=== PATIENT | female | born 1995 | race Caucasian/White ===

== ENCOUNTER 2017-01-10 00:12 | Emergency (ER) | payer SELFPAY ==
[~2017-01-10] VITALS: Ht 175.3 cm; Wt 156.2 kg
[~2017-01-10 00:12] MED LIST: ACDPT PO; ARIP5TAB5 PO; CYCL10TA45 PO; DULO60CA7 PO; GBPN300C PO; SULF1TAB35 PO
--- OUTSIDE RECORDS SUMMARY | 2017-01-10 00:17 | XMS REPORT | Summary of Care ---
Author Author Dee Dee Aleaxndra Organization Unknown Address [address] [place], [place] [id number] Phone Unavailable Care Team Providers Care Paraoptometric Name Role Phone Dee Dee Alexandra Unavailable Unavailable Abraham Carrasco M.D. Unavailable Unavailable DaniloAbraham lobo Unavailable Unavailable Unavailable Unavailable Functional Status Name Dates Details Functional status health issues are not documented Status: Name Dates Details Cognitive status health issues are not documented Status: Problems Name Dates Details DUB (dysfunctional uterine bleeding) (626.8, N93.8) Status: Active Abdominal pain (789.00, R10.9) Status: Active Chronic diarrhea (787.91, K52.9) Status: Active Bleeding after intercourse (626.7, N93.0) Status: Active Muscle spasm (728.85, M62.838) Status: Active Fibromyalgia (729.1, M79.7) Status: Active Morbid obesity (278.01, E66.01) Status: Active Hydradenitis (705.83, L73.2) Status: Active Depression (311, F32.9) Status: Active Anxiety disorder (300.00, F41.9) Status: Active Amenorrhea (626.0, N91.2) Status: Active Weight gain (783.1, R63.5) Status: Active Encounter for fertility planning (V26.89, Z31.89) Status: Active Medications Name Dates Details SEROquel 50 MG Oral Tablet TAKE 1 TABLET AT BEDTIME. Refills: 0 Danilo M.D., Abraham Start 15-May-2016 Active DULoxetine HCl - 60 MG Oral Capsule Delayed Release Particles TAKE 1 CAPSULE Daily Refills: 0 [place] M.D., Abraham Start 25-May-2016 Active Baclofen 10 MG Oral Tablet TAKE 1 TABLET 3 times daily PRN muscle spasms Quantity: 90 Refills: 4 Danilo M.D., Abraham Start 29-May-2016 Active BusPIRone HCl - 10 MG Oral Tablet TAKE 1 TABLET DAILY. Quantity: 30 Refills: 0 Danilo M.D., Abraham Start 29-May-2016 Active TraZODone HCl - 50 MG Oral Tablet Refills: 0 Start 08-Jun-2016 Active Plus 27-1 MG Oral Tablet TAKE 1 TABLET DAILY. Quantity: 1 Refills: 2 Dee Dee Alexandra Start 08-Jun-2016 Active 100 Tablet Bottle Allergies and Adverse Reactions Name Dates Details Latuda TABS (Allergy) Status: Active Penicillins (Allergy) Status: Active Latex (Allergy) Status: Active Past Medical History Name Dates Details History of Chlamydia (079.98, A74.9) Status: Resolved History of Elbow fracture (812.40, S42.409A) Status: Resolved Procedures Procedure Dates Details THYROID STIM. HORMONE 3602 Ordered: 08-Jun-2016 HEMOGLOBIN A1C 3507 Ordered: 08-Jun-2016 Immunization Name Dates Details Influenza on: 2014 Family History Name Dates Details Family history of fibromyalgia (V17.89, Z82.69) Status: Active Name Dates Details Family history of Diabetes type 2, controlled (250.00, E11.9) Status: Active Family history of malignant neoplasm of kidney (V16.51, Z80.51) Status: Active Family history of hypertension (V17.49, Z82.49) Status: Active Social History Name Dates Details - Status: Name Dates Details Former smoker Vital Signs Date Test Result Details 08-Jun-2016 14:47 BP Systolic 114 mm[Hg] Status: Comments: Location: LUE; Position: Sitting BP Diastolic 80 mm[Hg] Status: Comments: Location: LUE; Position: Sitting Weight 370 lb Status: 29-May-2016 13:42 BP Systolic 124 mm[Hg] Status: Comments: Location: LUE; Position: Sitting BP Diastolic 72 mm[Hg] Status: Comments: Location: LUE; Position: Sitting Temperature 97.9 f Status: Comments: Method: Tympanic Heart Rate 86 /min Status: Comments: Location: ; Weight 370.4 lb Status: Physical Findings 98 Status: Comments: O2 Saturation 15-May-2016 11:07 BP Systolic 122 mm[Hg] Status: Comments: Location: ; Position: BP Diastolic 70 mm[Hg] Status: Comments: Location: ; Position: Temperature 97.7 f Status: Heart Rate 85 /min Status: Height 70.2 in Status: Weight 371.375 lb Status: Physical Findings 98 Status: Comments: O2 Saturation Body Mass Index Calculated 52.98 kg/m2 Status: Body Surface Area Calculated 2.72 m2 Status: Results Date Description Value Details 16-May-2016 14:31 Comprehensive Metabolic Panel 1212 Comments: Items were attached to this order: BHCGItems were attached to this order: FSHItems were attached to this order: PROL SODIUM 138 mmol/L Range: 133-144 POTASSIUM 4.4 mmol/L Range: 3.5-5.1 CHLORIDE 105 mmol/L Range: 98-110 CARBON DIOXIDE 25.7 mmol/L Range: 23.0-33.0 ANION GAP 7 mmol/L Range: 6-16 BUN 11 mg/dL Range: 7-18 CREATININE, SERUM 1.04 mg/dL (Above high threshold) Range: 0.55-1.02 Comments: Please note new reference ranges effective 2015.----- BUN:CREATININE RATIO 11 EST GFR, >60 ml/min Range: >60 EST GFR, NON-AFR ANDORRAN >60 ml/min Range: >60 Comments: EST GFR is reported in ml/min per 1.73 m2 of body surface area. For -[place], please multiple result by 1.2.----- GLUCOSE 91 mg/dL Range: 70-100 ALK PHOSPHATASE 72 U/L Range: 46-116 TOTAL BILIRUBIN 0.50 mg/dL Range: 0.20-1.00 AST 36 U/L (Above high threshold) Range: 8-35 ALT 62 U/L (Above high threshold) Range: 14-59 Comments: Please note new reference ranges. Effective 12/20/2014.----- ALBUMIN 3.4 g/dL Range: 3.4-5.0 TOTAL PROTEIN 7.1 g/dL Range: 6.4-8.2 A/G RATIO 0.9 units (Below low threshold) Range: 1.0-1.8 CALCIUM 8.7 mg/dL Range: 8.5-10.1 14:31 LIPID PROFILE 1184 Comments: Items were attached to this order: BHCGItems were attached to this order: FSHItems were attached to this order: PROL CHOLESTEROL 179 mg/dL Range: <200 TRIGLYCERIDES 183 mg/dL Range: 30-200 HDL Cholesterol 39 mg/dL (Below low threshold) Range: >39 NON HDL CHOLESTEROL 140 CARDIAC RSK FACTOR 4.6 units Range: 4.4-5.0 LDL - CALCULATED 103 mg/dL Range: 0-130 18-May-2016 08:36 THYROID STIM. HORMONE 3602 Comments: Items were attached to this order: BHCGItems were attached to this order: FSHItems were attached to this order: PROL THYROID STIM. HORMONE 2.404 uIU/mL Range: 0.550-4.780 Comments: No established reference ranges for infants and children <2 years of age----- 08:36 FOLLICLE STIM. HORMONE 3616 Comments: Items were attached to this order : BHCGItems were attached to this order: FSHItems were attached to this order: PROL FOLLICLE STIM. HORMONE 5.3 mIU/mL Comments: Female Ranges:Follicular: 2.5-10.2 mIU/mLOvulatory: 3.4-33.4 mIU/mLLuteal: 1.5-9.1 mIU/mLPostmenopausal : 23.0-116.3 mIU/mL----- 08:36 BETA HCG 3500 Comments: Items were attached to this order: BHCGItems were attached to this order: FSHItems were attached to this order: PROL BETA HCG <2 mIU/mL Range: 0-5 Comments: Gestational age: 0.02-1 Weeks=5-50 mIU/mL1-2 Weeks=50-500 mIU/mL2-3 Lihbg=153-8116 mIU/mL3-4 Xboxu=379-37,000 mIU/mL4-5 Weeks=1,000-50,000 mIU/mL5- 6 Weeks=10,000-100,000 mIU/mL6-8 Weeks=15,000-200,000 mIU/mL2-3 months=10,000- 100,000 mIU/mL----- 08:37 PROLACTIN 3612 Comments: Items were attached to this order: BHCGItems were attached to this order: FSHItems were attached to this order: PROL PROLACTIN 9.2 ng/mL Range: 2.8-29.2 Comments: Women: 9.7-208.5Post-menopausal Women: 1.8-20.3----- 22-May-2016 07:48 17-OH Progesterone LCMS [id number] Comments: Items were attached to this order: Testosterone Free \T\ TotalItems were attached to this order: DHEA SerumTesting performed at: [DA] [address] [address], [place], [address], , Vat Skimmer: NARGIS Temple MDTesting performed at: [] [address], [address], , Vat Skimmer: Davis Celis MD 17-OH PROGESTERONE LCMS <10 ng/dL Comments: Adult Female Follicular 15 - 70 Luteal 35 - 290----- 07:48 DHEA, Serum [id number] Comments: Items were attached to this order: Testosterone Free \T\ TotalItems were attached to this order: DHEA SerumTesting performed at: [DA] [address], [address], , Vat Skimmer: NARGIS Temple MDTesting performed at: [BN] [address], [address], , Vat Skimmer: Davis Celis MD DEHYDROEPIANDROSTERONE (DHEA) 112 ng/dL Range: 31-701 Comments: Age 1 - 5 years 0 - 67 6 - 7 years 0 - 110 8 - 10 years 0 - 185 11 - 12 years 0 - 201 13 - 14 years 0 - 318 15 - 16 years 39 - 481 17 - 19 years 40 - 491 >19 years 31 - 701This test was developed and its performance characteristicsdetermined by [facility]. It has not been cleared orapproved by the Food and Drug Administration.----- 07:48 Testosterone,Free and Total [id number] Comments: Items were attached to this order: Testosterone Free \T\ TotalItems were attached to this order: DHEA SerumTesting performed at: [DA] [facility], [address] [place] [address], [place], [address], , Vat Skimmer: NARGIS Temple MDTesting performed at: [BN] [facility], [address] [place] [address], [place] , [address], , Vat Skimmer: Davis Celis MD TESTOSTERONE, SERUM 24 ng/dL Range: 8-48 FREE TESTOSTERONE(DIRECT) 1.2 pg/mL Range: 0.0-4.2 08-Jun-2016 15:35 URINE TEST 8010 URINE TEST Negative Range: Negative Comments: Internal Control: Acceptable----- Plan of Care Name Dates Details Planned Observations Planned Goals not documented Planned Encounters Appointment; Provider: Dee Dee Alexandra On 07-Dec-2016 13:30 Appointment; Provider: Abraham Carrasco M.D. On 10-Jul-2016 10:00 Instructions Name Dates Details Instructions not documented Encounters Appointment; Dee Dee Alexandra Encounter Diagnosis: Problem not documented On 08-Jun-2016 14:30 Appointment; Abraham Carrasco M.D. Encounter Diagnosis: Problem not documented On 29-May-2016 13:30 Appointment; Abraham Carrasco M.D. Encounter Diagnosis: Problem not documented On 15-May-2016 11:00
[2017-01-10 01:01] LABS: BILIRUBIN,URINE Negative (Negative); CLARITY,URINE Clear; COLOR,URINE Yellow; GLUCOSE, URINE (UA) Negative (Negative); LEUKOCYTE ESTERASE ,URINE Trace (Negative); PH,URINE 5.5 (5.0 - 8.0); UROBILINOGEN,URINE 0.2 mg/dL (0.2-1.0)
[2017-01-10 01:02] LABS: HCG,QUALITATIVE URINE Negative (Negative)
[2017-01-10 01:23] LABS: RBC,URINE 0-2 /HPF; URINE CENTRIFUGED VOLUME 12 mL
[2017-01-10] MEDS ORDERED: KETOROLAC 60 MG/2 ML (TORADOL) VIAL IM ONE (01:35)
[2017-01-10 01:43] VITALS: BP 108/70
--- NOTE | 2017-01-10 01:59 | NUR ---
TORADOL GIVEN IM NO IV SO NO STOP START TIMES
== END 2017-01-10 02:00 | disposition home or self-care (01) ==
LOC: ED 00:15
DX: R10.2 Pelvic and perineal pain (principal)
CPT/HCPCS: 81003; 81015; 81025; 87088; 87210; 96372; 99283; J1885; 99282

== ENCOUNTER → 2017-03-03 | Outpatient (CLI) | payer MEDICAID | LOC: LAB 03-02 15:56 | PROVIDERS: ATTEND Family Medicine | DX: R19.7 Diarrhea, unspecified (principal) | CPT/HCPCS: 87507 ==